=== PATIENT | female | born 1985 | race Two or more races ===

== ENCOUNTER 2024-12-12 09:05 | Emergency (ER) | payer MEDICARE, MEDICAID, SELFPAY ==
[2024-12-12 09:06] VITALS: BMI 47.0
[2024-12-12 09:20] VITALS: BP 112/81; PULSE 92; RESP 18; TEMP 36.9; O2SAT 97
--- NOTE | 2024-12-12 09:24 | XR_ITS ---
Examination: Pelvic ultrasound, transabdominal, complete Technique: Transabdominal ultrasound of the pelvis performed using grayscale imaging Date and time of exam: December 12, 2024 0953 hours INDICATIONS: Post intrauterine device with right pelvic pain today FINDINGS: Uterus 7.0 cm intrauterine device satisfactory position. Posterior uterine body mass 2.9 x 3.0 cm, anterior uterine fundal mass 17 x 14 mm Endometrial stripe 1.0 cm Right ovary 3.0 cm arterial flow, 31 x 30 mm cyst Left ovary 4.6 cm arterial flow 20 x 23 mm cyst IMPRESSION: Intrauterine device satisfactory position Uterine areas of fibroid degeneration Small bilateral ovarian cysts
[2024-12-12 09:55] LABS: Collection Type, Urine Clean Catch
[2024-12-12 10:09] LABS: Bacteria,Urine 1+; Bilirubin,Urine Negative (Negative); Blood,Urine Trace (Negative); Clarity,Urine Turbid (Clear/Hazy); Color,Urine Yellow (Lt Yel-Yel); Culture Indicated,Urine Contaminated; Glucose, Urine Negative (Negative); Ketones,Urine Negative (Negative); Leukocyte Esterase,Urine Positive (Negative); Nitrite,Urine Negative (Negative); PH,Urine 5.5 (5.0-7.0); Protein,Urine Trace (Neg - Trace); RBC,Urine 19 /hpf (0-3); Specific Gravity,Urine 1.025 (1.001-1.035); Squamous Epithelial Cell,Urine 37 /hpf (0-5); Urobilinogen,Urine Negative mg/dL (0.0-1.0); WBC,Urine 248 /hpf (0-5)
[2024-12-12 10:14] LABS: Basophils # (Auto) 0.0 Thou/mm3 (0.0-0.2); Basophils % (Auto) 0 % (0-2.5); Eosinophils # (Auto) 0.1 Thou/mm3 (0.0-0.5); Eosinophils % (Auto) 1 % (0-10); Hematocrit 37.1 % (36.0-46.0); Hemoglobin 11.8 g/dL (12.0-16.0); Immature Granulocytes Auto 0.03 Thou/mm3 (0.00-0.00); Lymphocytes # (Auto) 1.6 Thou/mm3 (1.0-4.8); Lymphocytes % (Auto) 23 % (10-50); Mean Corpuscular HGB Conc 31.8 g/dl (31.0-37.0); Mean Corpuscular Hemoglobin 26.2 pg (25.0-35.0); Mean Corpuscular Volume 82 fL (80-100); Monocytes # (Auto) 0.5 Thou/mm3 (0.0-0.8); Monocytes % (Auto) 8 % (0-12); Neutrophils # (Auto) 4.6 Thou/mm3 (1.8-7.7); Neutrophils % (Auto) 67 % (37-80); Nucleated Red Blood Cell # 0.00 Thou/mm3 (0.00-0.00); Nucleated Red Blood Cell % 0 /100 WBC (0); Platelet Count 328 Thou/mm3 (140-440); RDW Standard Deviation 43.0 fL (36.4-46.3); Red Blood Count 4.51 Miln/mm3 (4.00-5.20); White Blood Count 6.9 Thou/mm3 (3.6-11.0)
[2024-12-12 10:15] LABS: HCG Qualitative,Urine Negative
[2024-12-12 10:16] LABS: Alanine Aminotransferase 15 U/L (10-49); Albumin, Serum 4.3 gm/dL (3.5-5.0); Albumin/Globulin Ratio 1.8 (1.2-2.2); Alkaline Phosphatase 89 U/L (46-116); Anion Gap 9 (7-16); Aspartate Amino Transferase 21 U/L (0-34); BUN/Creatinine Ratio 13 Ratio (12-20); Bilirubin,Total 0.4 mg/dL (0.3-1.2); Blood Urea Nitrogen 10 mg/dL (9-23); Calcium 9.3 mg/dL (8.3-10.6); Calcium (Corrected) 9.3 mg/dL (8.5-10.1); Carbon Dioxide 23.8 mMol/L (20.0-31.0); Chloride 105 mMol/L (98-107); Creatinine (Component) 0.8 mg/dL (0.6-1.3); Estimated Creatinine Clearance 95.5 mL/min (>60); Globulin 2.4 gm/dL (2.3-3.5); Glucose 86 mg/dL (74-106); Osmolality,Calculated 273 (275-295); Potassium 4.0 mMol/L (3.4-5.1); Sodium 138 mMol/L (136-145); Total Protein 6.7 gm/dL (5.7-8.2); eGFR > 60 See Note
[2024-12-12 10:32] LABS: Amphetamine/Methamp Scrn,U Negative (Negative); Barbiturate Screen,Urine Negative (Negative); Benzodiazepines Screen,Urine Negative (Negative); Benzoylecgonine Screen, Ur Negative (Negative); Fentanyl Screen,Urine Negative (Negative); Opiate Screen,Urine Negative (Negative); THC Screen,Urine Negative (Negative)
[2024-12-12] MEDS: cefTRIAXone SOD INJ 1,000 MG VIAL 1000 MG IM (11:04)
[2024-12-12] MEDS: LIDOCAINE HCL 1% 20 ML VIAL 2.1 ML INFL (11:04)
--- NOTE | 2024-12-25 06:48 | EDNOTE_ITS ---
ED Female Urogenital RME/HPI General Chief complaint: Urogenital-Female Stated complaint: MY MARÍA BROKE ; R VAGINAL PAINX1 DAY Time Seen by Provider: 12/12/24 09:17 Arrival date/time: 12/12/24 09:05 39-year-old female with history of schizophrenia and anxiety presents to the Emergency Department today stating that she believes her María stevenson patient believes that she saw string coming out of her vagina patient also reports vaginal pain Limitations: no limitations Related Data Home Medications ?Medication ?Instructions ?Recorded ?Confirmed hydroxyzine pamoate 50 mg capsule 50 mg PO BID PRN Anx iety 07/18/20 07/18/20 (Vistaril) paliperidone palmitate 234 mg/1.5 mg 07/18/20 mL intramuscular syringe (Invega Sustenna) Previous Rx's ?Medication ?Instructions ?Recorded ciprofloxacin HCl 500 mg tablet 500 mg PO BID #14 tabs 11/27/21 (Cipro) Allergies Allergy/AdvReac Type Severity Reaction Status Date / Time acetaminophen (From Tylenol) Allergy Severe Rash Verified 12/12/24 09:11 ibuprofen (From Motrin) Allergy Severe Rash Verified 12/12/24 09:11 Sulfa (Sulfonamide Allergy Severe Hives Verified 12/12/24 09:11 Antibiotics) Review of Systems Review of Systems Systems Reviewed: All systems reviewed, normal except as documented Constitutional Constitutional: Reports system reviewed and no additional complaints, except as documented, Denies fever(s) and Denies headache(s) Eyes Eyes: Reports system reviewed and no additional complaints, except as documented and Denies blurry vision ENT Ears, Nose, Mouth, and Throat: Reports system reviewed and no additional complaints, except as documented, Denies headache(s), Denies nasal congestion and Denies nasal discharge Cardiovascular Cardiovascular: Reports system reviewed and no additional complaints, except as documented, Denies chest pain and Denies dyspnea Respiratory Respiratory: Reports system reviewed and no additional complaints, except as documented, Denies chest congestion, Denies cough and Denies dyspnea Gastrointestinal Gastrointestinal: Reports system reviewed and no additional complaints, except as documented and Denies abdominal pain Integumentary/Breasts Skin/Breast: Reports system reviewed and no additional complaints, except as documented and Denies rash Neurologic Neurologic: Reports system reviewed and no additional complaints, except as documented, Reports as per HPI and Denies headache(s) Psychiatric Psychiatric: Reports system reviewed and no additional complaints, except as documented and Reports other (Anxiety, schizophrenia) Past Medical History Past Medical History NEUROLOGIC: Negative Neurological Disorders CARDIAC: Positive Hypercholesterolemia; Negative Cardiac Disorders or Congestive Heart Failure RESPIRATORY: Negative Chronic Obstructive Pulmonary Disease (COPD) GASTROINTESTINAL: Negative Gastrointestinal Disorders GENITOURINARY: Negative Renal Disease MUSCULOSKELETAL: Negative Musculoskeletal Disorders ENDOCRINE: Negative Endocrine Disorders, Diabetes Mellitus Type 1 or Diabetes Mellitus Type 2 HEMATOLOGIC: Negative Blood Disorders PSYCHO/SOCIAL: Positive Schizophrenia, Bipolar Disorder, Anxiety and Behavior Problems Social History SMOKING STATUS: Never smoker SUBSTANCE USE: does not use ED Exam General Limitations: Present no limitations General appearance: Present alert and in no apparent distress Head Head exam: Present atraumatic Eye Eye exam: Present normal appearance, PERRL and EOMI ENT ENT exam: Present normal exam, normal oropharynx and mucous membranes moist Neck Neck exam: Present normal inspection, full ROM and trachea midline Chest Chest inspection: Present normal inspection and symmetric chest wall rise Respiratory Respiratory exam: Present normal lung sounds bilaterally Cardiovascular Cardiovascular exam: Present regular rate, normal rhythm and normal heart sounds Abdominal Exam Abdominal exam: Present soft and normal bowel sounds Extremities Exam Extremities exam: Present normal inspection and full ROM Back Exam Back exam: Present normal inspection and full ROM Neurological Exam Neurological exam: Present alert, oriented X3 and CN II-XII intact Psychiatric Psychiatric exam: Present normal affect and normal mood Skin Skin exam: Present warm, dry, intact and normal color Course Quality Measures none Orders Category Date Time Status US pelvic complete Stat Exams 12/12/24 09:24 Completed CBC Stat Lab 12/12/24 09:50 Completed Comprehensive Metabolic Panel Stat Lab 12/12/24 09:50 Completed Drug Screen,Urine Stat Lab 12/12/24 09:46 Completed HCG Qualitative,Urine Stat Lab 12/12/24 09:46 Completed Lipase Stat Lab 12/12/24 09:50 Completed UA, C/S IF [Urinalysis, C/S if Indicated] Stat Lab 12/12/24 09:46 Completed Lidocaine 1% 20 ml [Xylocaine 1% 20 ML] Med 12/12/24 10:50 Discontinued 2.1 ml INFL X1 ONE cefTRIAXone [Rocephin] Med 12/12/24 10:50 Discontinued 1,000 mg IM X1 ONE Vital Signs Vital signs: Vital Signs Temperature 98.4 F 12/12/24 09:20 Pulse Rate 92 12/12/24 09:20 Respiratory Rate 18 12/12/24 09:20 Blood Pressure 112/81 12/12/24 09:20 Pulse Oximetry (%) 97 12/12/24 09:20 Oxygen Delivery Method Room Air 12/12/24 09:20 O2 saturation 97% room air within normal limits Urogenital - Female MDM Narrative MDM Narrative:: 39-year-old female with history of schizophrenia and anxiety presents to the Emergency Department today stating that she believes her Mirena broke patient believes that she saw string coming out of her vagina patient also reports vaginal pain On exam patient well-appearing patient does not appear toxic acute distress Ultrasound obtained Mirena is in place Urinalysis obtained consistent with UTI Patient pursue a course of antibiotics Patient struck to follow-up with PCP for further evaluation for worsening symptoms return immediately Patient data External records reviewed:: [facility] previous records Clinical information provided by:: patient Social determinants that could affect healthcare access:: mental health Patient has the following chronic illnesses:: See history How is presenting disease/condition affected by chronic disease/condition?: exacerbated by Evaluation data The following diagnostics were reviewed and interpreted by me:: lab results Lab and/or radiology exams considered but not ordered:: Lab obtained Interpretation Summary: Reviewed by me Medications / Prescriptions Medications or Prescriptions considered but not ordered:: Given Medication administrations:: Medication Administration History Discontinued Medications Ceftriaxone Sodium (Ceftriaxone Sod Inj 1,000 Mg Vial) 1,000 mg IM X1 ONE Stop: 12/12/24 10:51 Last Admin: 12/12/24 11:04 Dose: 1,000 mg Documented By: Lidocaine HCl (Lidocaine Hcl 1% 20 Ml Vial) 2.1 ml INFL X1 ONE Stop: 12/12/24 10:51 Last Admin: 12/12/24 11:04 Dose: 2.1 ml Documented By: Given Consultations Consultation(s) initiated? (list below): No Diagnosis Urogenital Female Differential Diagnosis: urinary tract infection, cystitis and other (IUD displaced) Most likely diagnosis given after review of the tests above:: Reviewed by me Admission Indicated Admission indicated?: not indicated Admission Request Was there a request for admission?: No Disposition Plan Disposition Plan: Discharge Discharge Attestation Discharge Attestation: The patient and all family members were given an opportunity to ask questions and understood the discharge instructions. Discharge instructions specifically effects, indications for sooner follow up or return to the emergency department, and the expected course of current diagnosis. Patient condition: Stable Discharge Plan Plan Patient Disposition: HOME (Self Care) Discharge Disposition comment: Stable Prescriptions/Referrals Prescriptions/Med Rec: No Action hydroxyzine pamoate [Vistaril] 50 mg Capsule 50 mg PO BID PRN (Reason: Anxiety) Invega Sustenna 234 mg/1.5 mL Syringe ciprofloxacin HCl [Cipro] 500 mg tablet 500 mg PO BID Qty: 14 0RF Referrals: Fredy Fitzpatrick MD [Primary Care Provider, Family Practice] - 12/13/24 Problem List Clinical Impression: UTI (urinary tract infection), IUD (intrauterine device) in place Patient/Caregiver Discharge Instructions Education Materials: IUD Additional Instructions: Please follow up with your primary care doctor in the next 24-48hrs for any worsening symptoms return here immediately Print Language: Divehi Stand Alone Forms: Chiara Award Info., Patient Portal Info Letter PA/REGIONAL CLIMATE CHANGE ANALYST Supervising Physician PA/REGIONAL CLIMATE CHANGE ANALYST Supervising Physician: Dr. adams
== END 2024-12-12 11:12 | disposition home or self-care (01) ==
PROVIDERS: Nurse Practitioner Primary Care; Emergency Provider Family Medicine; PCP Family Medicine
DX: N39.0 Urinary tract infection, site not specified (principal); F20.9 Schizophrenia, unspecified; F41.9 Anxiety disorder, unspecified
CPT/HCPCS: 36415; 76856; 80053; 80307; 81001; 81025; 83690; 85025; 96372; 99283; J0696; J3490

== ENCOUNTER 2025-01-06 08:39 | Emergency (ER) | payer MEDICARE, MEDICAID, SELFPAY ==
--- NOTE | 2025-01-06 08:54 | XR_ITS ---
Examination: CT abdomen and pelvis without contrast. Coronal 3-D reconstructions. Sagittal 2-D reconstructions. Date and time of exam:January 06, 2025, 1039 hours INDICATIONS: Right-sided flank pain and dysuria today CTDI: vol (mGy): 11.1 DLP: (mGycm): 652 Technique: Axial images of the abdomen have been obtained, 3 mm slice thickness Intravenous contrast material has not been administered. Low dose protocols were performed. One or more of the following dose reduction techniques were used; automated exposure control, adjustment of the mA and/or KV according to patient size, use of iterative reconstruction technique. Findings: Small pericardial effusion No visualized liver or splenic lesion Absent gallbladder No extra hepatic biliary tract dilatation No pancreatic or adrenal mass. No renal or ureteral calculi, no hydronephrosis Aorta normal size No bowel obstruction Normal appendix No diverticulitis Focal area of fat inflammation in the pelvis on the right side, axial image 145, measuring 15 mm Intrauterine device satisfactory position Minimal thickening of urinary bladder wall Moderate osteopenia IMPRESSION: No renal or ureteral calculi, no hydronephrosis Normal appendix Focal epiploic appendagitis right pelvis Mild cystitis pattern
[2025-01-06 08:55] VITALS: BP 115/76; PULSE 88; RESP 18; TEMP 37.2; O2SAT 99; BMI 43.9
--- NOTE | 2025-01-06 08:56 | PD.EDRME ---
Rapid Medical Screening Exam RME Arrival date/time: 01/06/25 08:39 39-year-old female with a history of schizophrenia and bipolar disorder presents to the emergency room with a chief complaint of right sided flank pain and dysuria. Patient states she was diagnosed with a UTI and prescribed oral antibiotics a week ago. I have greeted and performed a focused initial assessment of this patient. A comprehensive ED assessment and evaluation of the patient, analysis of all test results, and completion of the medical decision making process will be conducted by additional ED providers. Chief Complaint: General Adult/Misc Complain Time Seen by Provider: 01/06/25 08:41 Vital signs reviewed by provider: Yes
[2025-01-06 09:36] LABS: Basophils # (Auto) 0.0 Thou/mm3 (0.0-0.2); Basophils % (Auto) 0 % (0-2.5); Eosinophils # (Auto) 0.1 Thou/mm3 (0.0-0.5); Eosinophils % (Auto) 2 % (0-10); Hematocrit 38.6 % (36.0-46.0); Hemoglobin 12.3 g/dL (12.0-16.0); Immature Granulocytes Auto 0.00 Thou/mm3 (0.00-0.00); Lymphocytes # (Auto) 1.7 Thou/mm3 (1.0-4.8); Lymphocytes % (Auto) 33 % (10-50); Mean Corpuscular HGB Conc 31.9 g/dl (31.0-37.0); Mean Corpuscular Hemoglobin 26.2 pg (25.0-35.0); Mean Corpuscular Volume 82 fL (80-100); Monocytes # (Auto) 0.3 Thou/mm3 (0.0-0.8); Monocytes % (Auto) 7 % (0-12); Neutrophils # (Auto) 2.9 Thou/mm3 (1.8-7.7); Neutrophils % (Auto) 58 % (37-80); Nucleated Red Blood Cell # 0.00 Thou/mm3 (0.00-0.00); Nucleated Red Blood Cell % 0 /100 WBC (0); Platelet Count 338 Thou/mm3 (140-440); RDW Standard Deviation 44.0 fL (36.4-46.3); Red Blood Count 4.69 Miln/mm3 (4.00-5.20); White Blood Count 5.0 Thou/mm3 (3.6-11.0)
[2025-01-06 09:36] LABS: Collection Type, Urine Clean Catch
[2025-01-06 09:42] LABS: HCG Qualitative,Urine Negative
[2025-01-06 09:44] LABS: Bilirubin,Urine Negative (Negative); Blood,Urine 3+ (Negative); Clarity,Urine Turbid (Clear/Hazy); Color,Urine Yellow (Lt Yel-Yel); Glucose, Urine Negative (Negative); Ketones,Urine Trace (Negative); Leukocyte Esterase,Urine Positive (Negative); Nitrite,Urine Negative (Negative); PH,Urine 6.0 (5.0-7.0); Protein,Urine Trace (Neg - Trace); RBC,Urine 6 /hpf (0-3); Specific Gravity,Urine 1.028 (1.001-1.035); Squamous Epithelial Cell,Urine 21 /hpf (0-5); Urobilinogen,Urine Negative mg/dL (0.0-1.0); WBC,Urine 50 /hpf (0-5)
[2025-01-06 09:56] LABS: Alanine Aminotransferase 33 U/L (10-49); Albumin, Serum 4.4 gm/dL (3.5-5.0); Albumin/Globulin Ratio 1.6 (1.2-2.2); Alkaline Phosphatase 83 U/L (46-116); Anion Gap 10 (7-16); Aspartate Amino Transferase 50 U/L (0-34); BUN/Creatinine Ratio 11 Ratio (12-20); Bilirubin,Total 0.5 mg/dL (0.3-1.2); Blood Urea Nitrogen 9 mg/dL (9-23); Calcium 9.1 mg/dL (8.3-10.6); Calcium (Corrected) 9.1 mg/dL (8.5-10.1); Carbon Dioxide 25.4 mMol/L (20.0-31.0); Chloride 108 mMol/L (98-107); Creatinine (Component) 0.8 mg/dL (0.6-1.3); Estimated Creatinine Clearance 91.5 mL/min (>60); Globulin 2.7 gm/dL (2.3-3.5); Glucose 94 mg/dL (74-106); Lipase 30 U/L (12-53); Osmolality,Calculated 283 (275-295); Potassium 3.7 mMol/L (3.4-5.1); Sodium 143 mMol/L (136-145); Total Protein 7.1 gm/dL (5.7-8.2); eGFR > 60 See Note
--- NOTE | 2025-01-06 11:50 | EDNOTE_ITS ---
<Statement entered by Anh Ge MD - 01/07/25 16:04> As co-signing physician, I was present and available for consult prn. I concur with the plan and care as documented by the midlevel provider. ED General RME/HPI General Chief complaint: General Adult/Misc Complain Stated complaint: WANTS TO KNOW IF UTI HAS SPREAD TO KIDNEYS Time Seen by Provider: 01/06/25 08:41 Arrival date/time: 01/06/25 08:39 CC: Right sided abdominal pain HPI unknown how long it has been going on for the patient is a very poor historian. Patient states she has been on antibiotics for UTI, the patient states but she has not taken them completely she stopped because of side effects . The patient is easily distracted poor historian, and notes she has an allergies to ibuprofen sulfa. RME / HPI RME / HPI narrative: 01/06/25 08:39 39-year-old female with a history of schizophrenia and bipolar disorder presents to the emergency room with a chief complaint of right sided flank pain and dysuria. Patient states she was diagnosed with a UTI and prescribed oral antibiotics a week ago. I have greeted and performed a focused initial assessment of this patient. A comprehensive ED assessment and evaluation of the patient, analysis of all test results, and completion of the medical decision making process will be conducted by additional ED providers. Related Data Home Medications ?Medication ?Instructions ?Recorded ?Confirmed hydroxyzine pamoate 50 mg capsule 50 mg PO BID PRN Anx iety 07/18/20 07/18/20 (Vistaril) paliperidone palmitate 234 mg/1.5 mg 07/18/20 mL intramuscular syringe (Invega Sustenna) Previous Rx's ?Medication ?Instructions ?Recorded ciprofloxacin HCl 500 mg tablet 500 mg PO BID #14 tabs 11/27/21 (Cipro) ibuprofen 600 mg tablet 600 mg PO QAM #14 tabs 01/06 nitrofurantoin 100 mg PO Q12H 5 days #10 ca ps 01/06/25 monohydrate/macrocrystals 100 mg capsule (Macrobid) Allergies Allergy/AdvReac Type Severity Reaction Status Date / Time acetaminophen (From Tylenol) Allergy Severe Rash Verified 01/06/25 08:42 ibuprofen (From Motrin) Allergy Severe Rash Verified 01/06/25 08:42 Sulfa (Sulfonamide Allergy Severe Hives Verified 01/06/25 08:42 Antibiotics) Review of Systems Review of Systems Narrative Review of Systems: GEN: No fever, no chills, no weight loss EYES: No discharge, no visual changes, no pain HEENT: No ear pain, no congestion, no sore throat PULM: No shortness of breath, no cough, no congestion CV: No chest pain, no dyspnea on exertion, no palpitations GI: No nausea, no vomiting, no diarrhea, no pain, no constipation : No frequency, no urgency, no dysuria MUSC/SKEL: No joint pain, no back pain SKIN: No rash PSYCH: No hallucinations, no depression HEME/LYMPH: No easy bleeding or bruising tendencies NEURO: No weakness, no headache Past Medical History Past Medical History NEUROLOGIC: Negative Neurological Disorders CARDIAC: Positive Hypercholesterolemia; Negative Cardiac Disorders or Congestive Heart Failure RESPIRATORY: Negative Chronic Obstructive Pulmonary Disease (COPD) GASTROINTESTINAL: Negative Gastrointestinal Disorders GENITOURINARY: Negative Renal Disease MUSCULOSKELETAL: Negative Musculoskeletal Disorders ENDOCRINE: Negative Endocrine Disorders, Diabetes Mellitus Type 1 or Diabetes Mellitus Type 2 HEMATOLOGIC: Negative Blood Disorders PSYCHO/SOCIAL: Positive Schizophrenia, Bipolar Disorder, Anxiety and Behavior Problems Social History SMOKING STATUS: Never smoker SUBSTANCE USE: does not use ED Exam Narrative Physical exam: [General: Morbid obese not in anyacute distress Head normocephalic HEENT: Within acceptable limits Neck is supple nontender Chest equal chest rise nontender to palpation Respiratory: Clear to auscultation no wheezes crackles or rubs CV: Rate rhythm is regular no murmurs rubs or clicks Abdomen is grossly distended secondary to body habitus soft nontender no masses positive bowel sounds all 4 quadrants Back: No CVA tenderness no spinous process tenderness from cervical spine thoracic and lumbar spine Skin: Intact no petechiae rash induration ulceration or crepitus Extremities: Moving all extremity against resistance cap refill less than 2 seconds neurosensory intact Neuro: Awake alert oriented x3 Glascow coma 15 no focal deficits] Course Course Course Narrative: Review the medical record show the patient's ibuprofen causes a rash however the patient denies that this happens on a regular basis. Patient feels that she had side effects to ciprofloxacin and is refusing that as an antibiotic at this time we will prescribe her Macrobid however I feel it was a contaminated urine specimen. Quality Measures none Orders Category Date Time Status CT abdomen pelvis wo con Stat Exams 10/06/25 08:54 Completed CBC Stat Lab 01/06/25 09:22 Completed CMP [Comprehensive Metabolic Panel] Stat Lab 01/06/25 09:22 Completed HCG Qualitative,Urine Stat Lab 01/06/25 09:15 Completed Lipase Stat Lab 01/06/25 09:22 Completed UA [Urinalysis] Stat Lab 01/06/25 09:15 Completed Urine Culture Stat Lab 01/06/25 09:15 Received Vital Signs Vital signs: Vital Signs Temperature 99 F 01/06/25 08:55 Pulse Rate 88 01/06/25 08:55 Respiratory Rate 18 01/06/25 08:55 Blood Pressure 115/76 01/06/25 08:55 Pulse Oximetry (%) 99 01/06/25 08:55 Oxygen Delivery Method Room Air 01/06/25 08:55 Discharge Plan Plan Patient Disposition: HOME (Self Care) Patient condition on transfer: Stable Prescriptions/Referrals Prescriptions/Med Rec: New nitrofurantoin monohyd/m-cryst [Macrobid] 100 mg capsule 100 mg PO Q12H 5 Days Qty: 10 0RF Rx Instructions: must administer with a meal/food ibuprofen 600 mg tablet 600 mg PO QAM Qty: 14 0RF No Action hydroxyzine pamoate [Vistaril] 50 mg Capsule 50 mg PO BID PRN (Reason: Anxiety) Invega Sustenna 234 mg/1.5 mL Syringe ciprofloxacin HCl [Cipro] 500 mg tablet 500 mg PO BID Qty: 14 0RF Referrals: Fredy Fitzpatrick MD [Primary Care Provider, Family Practice] - In 1 week Problem List Clinical Impression: Epiploic appendagitis Patient/Caregiver Discharge Instructions Other Activity Instructions:: Take the medications as prescribed. Follow-up with your primary care doctor Education Materials: Anatomy of the Digestive System Print Language: [place] Stand Alone Forms: Chiara Award Info., Patient Portal Info Letter, Work/School Release PA/FLIGHT CONTROL MANAGER Supervising Physician PA/FLIGHT CONTROL MANAGER Supervising Physician: Bert Cardenas ENP [facility] Clinical Information Provided by: patient Medical Records reviewed [facility] Meds/Rx considered, not ordered None Labs/Rad/Tests considered, not ordered None Chronic Illness/Social Conditions Explain: Schizophrenia EKG EKG not done Labs Labs: interpreted by co Lab(s) Interpretation(s): CBC shows no acute leukocytosis anemia thrombocytopenia CMP shows no significant electrolyte imbalances renal impairment transaminitis or T. bili elevation Urine shows 3+ blood 6 RBCs WBCs at 50 squamous of 21 no bacteria is negative.
== END 2025-01-06 12:14 | disposition home or self-care (01) ==
PROVIDERS: Nurse Practitioner Family; Emergency Provider Emergency Medicine; PCP Family Medicine
DX: K63.89 Other specified diseases of intestine (principal)
CPT/HCPCS: 36415; 74176; 80053; 81001; 81025; 83690; 85025; 87086; 99283

== ENCOUNTER 2025-01-10 03:27 | Emergency (ER) | payer MEDICARE, MEDICAID, SELFPAY ==
[2025-01-10 03:29] VITALS: BMI 62.7
--- NOTE | 2025-01-10 03:30 | EKG_ITS ---
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
[2025-01-10 03:33] VITALS: BP 137/81; PULSE 83; RESP 19; TEMP 36.5; O2SAT 99
--- NOTE | 2025-01-10 03:51 | XR_ITS ---
EXAMINATION: PA chest single view TECHNIQUE: Upright PA chest single view Date and time: January 10, 2025, 0433 hours, comparison February 11, 2020 INDICATIONS: Chest pain shortness of breath beginning 3 hours ago FINDINGS: Normal heart size. Lungs are clear. The osseous structures are intact IMPRESSION: No active disease
[2025-01-10 04:07] LABS: Collection Type, Urine Clean Catch
[2025-01-10 04:09] LABS: HCG Qualitative,Urine Negative
[2025-01-10 04:11] LABS: Bilirubin,Urine Negative (Negative); Blood,Urine Negative (Negative); Clarity,Urine Clear (Clear/Hazy); Color,Urine Lt-Yellow (Lt Yel-Yel); Culture Indicated,Urine Yes; Glucose, Urine Negative (Negative); Ketones,Urine Negative (Negative); Leukocyte Esterase,Urine Positive (Negative); Nitrite,Urine Negative (Negative); PH,Urine 6.0 (5.0-7.0); Protein,Urine Negative (Neg - Trace); RBC,Urine 2 /hpf (0-3); Specific Gravity,Urine 1.010 (1.001-1.035); Squamous Epithelial Cell,Urine 4 /hpf (0-5); Urobilinogen,Urine Negative mg/dL (0.0-1.0); WBC,Urine 21 /hpf (0-5)
--- NOTE | 2025-01-10 05:13 | PD.EDRME ---
Rapid Medical Screening Exam RME Arrival date/time: 01/10/25 03:27 39F with history of psych presents to ED with several hours of CP and SOB. Patient declines anxiety meds and would prefer a work-up. Chief Complaint: Anxiety Time Seen by Provider: 01/10/25 03:46 Vital signs: Vital Signs Temperature 97.7 F 01/10/25 03:33 Pulse Rate 83 01/10/25 03:33 Respiratory Rate 19 01/10/25 03:33 Blood Pressure 137/81 H 01/10/25 03:33 Pulse Oximetry (%) 99 01/10/25 03:33 Oxygen Delivery Method Room Air 01/10/25 03:33
[2025-01-10 05:52] LABS: Basophils # (Auto) 0.0 Thou/mm3 (0.0-0.2); Basophils % (Auto) 0 % (0-2.5); Eosinophils # (Auto) 0.1 Thou/mm3 (0.0-0.5); Eosinophils % (Auto) 2 % (0-10); Hematocrit 37.5 % (36.0-46.0); Hemoglobin 12.3 g/dL (12.0-16.0); Immature Granulocytes Auto 0.01 Thou/mm3 (0.00-0.00); Lymphocytes # (Auto) 1.4 Thou/mm3 (1.0-4.8); Lymphocytes % (Auto) 26 % (10-50); Mean Corpuscular HGB Conc 32.8 g/dl (31.0-37.0); Mean Corpuscular Hemoglobin 26.8 pg (25.0-35.0); Mean Corpuscular Volume 82 fL (80-100); Monocytes # (Auto) 0.4 Thou/mm3 (0.0-0.8); Monocytes % (Auto) 7 % (0-12); Neutrophils # (Auto) 3.4 Thou/mm3 (1.8-7.7); Neutrophils % (Auto) 65 % (37-80); Nucleated Red Blood Cell # 0.00 Thou/mm3 (0.00-0.00); Nucleated Red Blood Cell % 0 /100 WBC (0); Platelet Count 343 Thou/mm3 (140-440); RDW Standard Deviation 42.2 fL (36.4-46.3); Red Blood Count 4.59 Miln/mm3 (4.00-5.20); White Blood Count 5.2 Thou/mm3 (3.6-11.0)
[2025-01-10 06:14] LABS: D-Dimer 267 ng/mL (<600)
[2025-01-10 06:28] LABS: Alanine Aminotransferase 22 U/L (10-49); Albumin, Serum 4.5 gm/dL (3.5-5.0); Albumin/Globulin Ratio 1.4 (1.2-2.2); Alkaline Phosphatase 80 U/L (46-116); Anion Gap 9 (7-16); Aspartate Amino Transferase < 10 U/L (0-34); BUN/Creatinine Ratio 13 Ratio (12-20); Bilirubin,Total 0.7 mg/dL (0.3-1.2); Blood Urea Nitrogen 10 mg/dL (9-23); Calcium 9.3 mg/dL (8.3-10.6); Calcium (Corrected) 9.3 mg/dL (8.5-10.1); Carbon Dioxide 24.3 mMol/L (20.0-31.0); Chloride 107 mMol/L (98-107); Creatinine (Component) 0.8 mg/dL (0.6-1.3); Estimated Creatinine Clearance 108.1 mL/min (>60); Globulin 3.2 gm/dL (2.3-3.5); Glucose 90 mg/dL (74-106); Osmolality,Calculated 278 (275-295); Potassium 3.6 mMol/L (3.4-5.1); Sodium 140 mMol/L (136-145); Total Protein 7.7 gm/dL (5.7-8.2); Troponin I < 0.002 ng/mL (0.0-0.045); eGFR > 60 See Note
[2025-01-10 07:01] VITALS: BP 139/84; PULSE 68; RESP 17; TEMP 37.1; O2SAT 97
--- NOTE | 2025-01-10 07:01 | PD.EDWEAK ---
ED Weakness RME/HPI General Chief complaint: Anxiety Stated complaint: CHEST PAIN/ SOB Time Seen by Provider: 01/10/25 03:46 Source: patient Arrival date/time: 01/10/25 03:27 39-year-old female with history of bipolar disorder presents to the emergency room with a chief complaint of chest pain, shortness of breath, generalized weakness x 3 days Mode of arrival: ambulatory Limitations: no limitations RME / HPI RME / HPI Narrative: 01/10/25 03:27 39F with history of psych presents to ED with several hours of CP and SOB. Patient declines anxiety meds and would prefer a work-up. Related Data Home Medications ?Medication ?Instructions ?Recorded ?Confirmed hydroxyzine pamoate 50 mg capsule 50 mg PO BID PRN Anxiety 07/18/20 07/18/20 (Vistaril) paliperidone palmitate 234 mg/1.5 mg 07/18/20 mL intramuscular syringe (Invega Sustenna) Previous Rx's ?Medication ?Instructions ?Recorded ciprofloxacin HCl 500 mg tablet 500 mg PO BID #14 tabs 11/27/21 (Cipro) ibuprofen 600 mg tablet 600 mg PO QAM #14 tabs 01/06/25 nitrofurantoin 100 mg PO Q12H 5 days #10 caps 01/06/25 monohydrate/macrocrystals 100 mg capsule (Macrobid) Allergies Allergy/AdvReac Type Severity Reaction Status Date / Time acetaminophen (From Tylenol) Allergy Severe Rash Verified 01/06/25 08:42 ibuprofen (From Motrin) Allergy Severe Rash Verified 01/06/25 08:42 Sulfa (Sulfonamide Allergy Severe Hives Verified 01/06/25 08:42 Antibiotics) ciprofloxacin Allergy Verified 01/06/25 12:12 Review of Systems Review of Systems Systems Reviewed: All systems reviewed, normal except as documented Constitutional Constitutional: Reports system reviewed and no additional complaints, except as documented, Denies fatigue, Denies fever(s), Denies headache(s) and Denies weakness Eyes Eyes: Reports system reviewed and no additional complaints, except as documented, Denies blurry vision and Denies change in vision ENT Ears, Nose, Mouth, and Throat: Reports system reviewed and no additional complaints, except as documented, Denies otalgia, Denies headache(s), Denies nasal congestion, Denies throat swelling and Denies vertigo Cardiovascular Cardiovascular: Reports system reviewed and no additional complaints, except as documented, Reports chest pain, Reports dyspnea and Denies dyspnea on exertion Respiratory Respiratory: Reports system reviewed and no additional complaints, except as documented, Denies chest congestion, Denies cough, Reports dyspnea, Denies dyspnea on exertion and Denies wheezing Gastrointestinal Gastrointestinal: Reports system reviewed and no additional complaints, except as documented, Denies abdominal pain, Denies cramping, Denies nausea and Denies vomiting Genitourinary Genitourinary: Reports system reviewed and no additional complaints, except as documented Musculoskeletal Musculoskeletal: Reports system reviewed and no additional complaints, except as documented and Denies back pain Integumentary/Breasts Skin/Breast: Reports system reviewed and no additional complaints, except as documented and Denies wounds Neurologic Neurologic: Reports system reviewed and no additional complaints, except as documented, Denies confusion, Denies headache(s), Denies lack of coordination, Denies vertigo and Denies weakness Psychiatric Psychiatric: Reports system reviewed and no additional complaints, except as documented, Denies anxiety, Denies confusion, Denies depression, Denies paranoia, Denies suicidal ideation and Denies tactile hallucinations Endocrine Endocrine: Reports system reviewed and no additional complaints, except as documented and Denies fatigue Hematologic/Lymphatic Hematologic/Lymphatic: Reports system reviewed and no additional complaints, except as documented and Denies lymphadenopathy Allergic/Immunologic Allergic/Immunologic: Reports system reviewed and no additional complaints, except as documented, Denies throat swelling, Denies urticaria and Denies wheezing ED Exam General Limitations: Present no limitations General appearance: Present alert and in no apparent distress Head Head exam: Present atraumatic Eye Eye exam: Present normal appearance, PERRL and EOMI ENT ENT exam: Present normal exam, normal oropharynx and mucous membranes moist Neck Neck exam: Present normal inspection, full ROM and trachea midline Chest Chest inspection: Present normal inspection and symmetric chest wall rise Respiratory Respiratory exam: Present normal lung sounds bilaterally; Absent respiratory distress, wheezes, stridor, accessory muscle use or prolonged expiratory phase Cardiovascular Cardiovascular exam: Present regular rate, normal rhythm, normal heart sounds, +S1 and +S2; Absent tachycardia Abdominal Exam Abdominal exam: Present soft and normal bowel sounds; Absent tenderness Extremities Exam Extremities exam: Present normal inspection and full ROM Back Exam Back exam: Present normal inspection and full ROM Neurological Exam Neurological exam: Present alert, oriented X3 and CN II-XII intact Psychiatric Psychiatric exam: Present normal affect and normal mood Skin Skin exam: Present warm, dry, intact and normal color Course Quality Measures none Orders Category Date Time Status EKG (ED ONLY) *Do not use* NOW Care 01/10/25 03:30 Completed EKG (ED Only) Stat Exams 01/10/25 03:30 Draft XR chest 1V portable Stat Exams 01/10/25 04:41 Taken CBC Stat Lab 01/10/25 05:30 Completed CMP [Comprehensive Metabolic Panel] Stat Lab 01/10/25 05:30 Completed D-Dimer Stat Lab 01/10/25 05:30 Completed HCG Qualitative,Urine Stat Lab 01/10/25 03:57 Completed Troponin I Stat Lab 01/10/25 05:30 Completed Urinalysis, C/S if Indicated Stat Lab 01/10/25 03:57 Completed Urine Culture Stat Lab 01/10/25 03:57 Received Vital Signs Vital signs: Vital Signs Temperature 97.7 F 01/10/25 03:33 Pulse Rate 83 01/10/25 03:33 Respiratory Rate 19 01/10/25 03:33 Blood Pressure 137/81 H 01/10/25 03:33 Pulse Oximetry (%) 99 01/10/25 03:33 Oxygen Delivery Method Room Air 01/10/25 03:33 Weakness MDM Narrative MDM Narrative:: 39-year-old female with history of bipolar disorder presents to the emergency room with a chief complaint of chest pain, shortness of breath, generalized weakness x 3 days Patient is hemodynamically stable and in no apparent distress Physical examination shows clear bilateral lung sounds there is no wheezing or any abnormal breath sounds. The patient has a strong and regular rhythm S1 and S2 noted During my reevaluation the patient states she feels a little bit better. CBC CMP are within normal limits. There is no anemia there is no dehydration and there is no hypoglycemia. The patient is currently taking Macrobid for UTI. EKG shows normal sinus rhythm at [address] deviation. Troponin negative. Patient was discharged and educated to follow-up with primary care provider in the next 24 to 48 hours and return to the emergency room for any evidence of worsening signs or symptoms Patient data External records reviewed:: [facility] previous records Clinical information provided by:: patient Social determinants that could affect healthcare access:: none Patient has the following chronic illnesses:: No chronic illness How is presenting disease/condition affected by chronic disease/condition?: no chronic disease Evaluation data The following diagnostics were reviewed and interpreted by me:: lab results and radiology exam(s) Lab and/or radiology exams considered but not ordered:: Labs and radiology exams considered and ordered Interpretation Summary: N/A Medications / Prescriptions Medications or Prescriptions considered but not ordered:: No medication given Medication administrations:: No medication given Consultations Consultation(s) initiated? (list below): No Diagnosis Weakness Differential Diagnosis: acute myocardial infarction, anemia, hypoglycemia, hypothyroidism, dehydration and other (Weakness) Most likely diagnosis given after review of the tests above:: Weakness Admission Indicated Admission indicated?: not indicated Admission Request Was there a request for admission?: No Disposition Plan Disposition Plan: Discharge Discharge Attestation Discharge Attestation: The patient and all family members were given an opportunity to ask questions and understood the discharge instructions. Discharge instructions specifically effects, indications for sooner follow up or return to the emergency department, and the expected course of current diagnosis. Patient condition: Stable Discharge Plan Plan Patient Disposition: HOME (Self Care) Discharge Disposition comment: Stable Prescriptions/Referrals Prescriptions/Med Rec: No Action hydroxyzine pamoate [Vistaril] 50 mg Capsule 50 mg PO BID PRN (Reason: Anxiety) Invega Sustenna 234 mg/1.5 mL Syringe ciprofloxacin HCl [Cipro] 500 mg tablet 500 mg PO BID Qty: 14 0RF nitrofurantoin monohyd/m-cryst [Macrobid] 100 mg capsule 100 mg PO Q12H 5 Days Qty: 10 0RF Rx Instructions: must administer with a meal/food ibuprofen 600 mg tablet 600 mg PO QAM Qty: 14 0RF Referrals: Fredy Fitzpatrick MD [Primary Care Provider, Family Practice] - In 1 week Problem List Clinical Impression: Weakness Patient/Caregiver Discharge Instructions Education Materials: ED Weakness (Uncertain Cause) Additional Instructions: Please follow-up with your primary care provider in the next 24 to 48 hours Your cardiac examination was within normal limits. For any evidence of worsening signs or symptoms return to emergency room immediately Print Language: Albanian Stand Alone Forms: Chiara Award Info., Patient Portal Info Letter PA/CAGE MAKER Supervising Physician PA/CAGE MAKER Supervising Physician: Dr. Villafuerte
[2025-01-10 07:26] VITALS: BP 139/84; PULSE 68; RESP 17; TEMP 37.1; O2SAT 97
== END 2025-01-10 07:26 | disposition home or self-care (01) ==
PROVIDERS: Physician Assistant; Emergency Provider Emergency Medicine; PCP Family Medicine
DX: R53.1 Weakness (principal); F31.9 Bipolar disorder, unspecified; F41.9 Anxiety disorder, unspecified
CPT/HCPCS: 36415; 71045; 80053; 81001; 81025; 84484; 85025; 85379; 87086; 93005; 99283

== ENCOUNTER 2025-01-13 18:29 | Emergency (ER) | payer MEDICARE, MEDICAID, SELFPAY ==
[2025-01-13 18:31] VITALS: BMI 41.8
[2025-01-13 19:15] VITALS: BP 153/93; PULSE 92; RESP 18; TEMP 36.7; O2SAT 98
--- NOTE | 2025-01-13 20:06 | EKG_ITS ---
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
--- NOTE | 2025-01-13 20:08 | XR_ITS ---
EXAMINATION: PA chest single view TECHNIQUE: Upright PA chest single view Date and time: January 13, 2025, 6 hours INDICATIONS: Shortness of breath nausea chest pain beginning 2 days ago FINDINGS: Normal heart size The lungs are clear. The osseous ruptures are intact IMPRESSION: No active disease
[2025-01-13 20:37] LABS: Base Excess, Venous -1 (-3-3); Basophils # (Auto) 0.0 Thou/mm3 (0.0-0.2); Basophils % (Auto) 0 % (0-2.5); Eosinophils # (Auto) 0.1 Thou/mm3 (0.0-0.5); Eosinophils % (Auto) 1 % (0-10); Hematocrit 35.9 % (36.0-46.0); Hemoglobin 11.9 g/dL (12.0-16.0); Immature Granulocytes Auto 0.01 Thou/mm3 (0.00-0.00); Lymphocytes # (Auto) 1.7 Thou/mm3 (1.0-4.8); Lymphocytes % (Auto) 26 % (10-50); Mean Corpuscular HGB Conc 33.1 g/dl (31.0-37.0); Mean Corpuscular Hemoglobin 26.7 pg (25.0-35.0); Mean Corpuscular Volume 81 fL (80-100); Monocytes # (Auto) 0.5 Thou/mm3 (0.0-0.8); Monocytes % (Auto) 8 % (0-12); Neutrophils # (Auto) 4.1 Thou/mm3 (1.8-7.7); Neutrophils % (Auto) 64 % (37-80); Nucleated Red Blood Cell # 0.00 Thou/mm3 (0.00-0.00); Nucleated Red Blood Cell % 0 /100 WBC (0); O2 Saturation, Venous 68 % (96-97); PCO2, Venous 37 mmHg (36-56); PO2, Venous 35 mmHg (15-58); Platelet Count 336 Thou/mm3 (140-440); RDW Standard Deviation 43.1 fL (36.4-46.3); Red Blood Count 4.46 Miln/mm3 (4.00-5.20); White Blood Count 6.4 Thou/mm3 (3.6-11.0); pH, Venous 7.41 (7.33-7.66)
--- NOTE | 2025-01-13 20:40 | PD.EDRME ---
Rapid Medical Screening Exam RME Arrival date/time: 01/13/25 18:29 Chief Complaint: General Adult/Misc Complain Time Seen by Provider: 01/13/25 18:38 Vital signs: Vital Signs Temperature 98.1 F 01/13/25 19:15 Pulse Rate 92 01/13/25 19:15 Respiratory Rate 18 01/13/25 19:15 Blood Pressure 153/93 H 01/13/25 19:15 Pulse Oximetry (%) 98 01/13/25 19:15 Oxygen Delivery Method Room Air 01/13/25 19:15 Vital signs reviewed by provider: Yes RME Narrative: Patient was drinking alcohol with a friend yesterday however she thinks it might be a different substance, she drank a bottle of it, as today she has nausea vomiting and shortness of breath. She is requesting poisoning testing here in the ER. I briefly performed a screening evaluation to initiate work-up and expedite care. Complete history, physical exam, and plan of care is deferred to the provider in the main ED.
[2025-01-13 20:53] LABS: Amphetamine/Methamp Scrn,U Negative (Negative); Barbiturate Screen,Urine Negative (Negative); Benzodiazepines Screen,Urine Negative (Negative); Benzoylecgonine Screen, Ur Negative (Negative); Fentanyl Screen,Urine Negative (Negative); Opiate Screen,Urine Negative (Negative); THC Screen,Urine Negative (Negative)
[2025-01-13 21:18] LABS: Acetaminophen < 2.0 mcg/mL (10.0-20.0); Alanine Aminotransferase 19 U/L (10-49); Albumin, Serum 4.5 gm/dL (3.5-5.0); Albumin/Globulin Ratio 1.6 (1.2-2.2); Alcohol, Blood Medical < 3.0 mg/dL (0-10.0); Alkaline Phosphatase 77 U/L (46-116); Anion Gap 10 (7-16); Aspartate Amino Transferase 23 U/L (0-34); BUN/Creatinine Ratio 11 Ratio (12-20); Bilirubin,Total 0.4 mg/dL (0.3-1.2); Blood Urea Nitrogen 10 mg/dL (9-23); Calcium 9.3 mg/dL (8.3-10.6); Calcium (Corrected) 9.3 mg/dL (8.5-10.1); Carbon Dioxide 22.8 mMol/L (20.0-31.0); Chloride 104 mMol/L (98-107); Creatine Kinase 130 U/L (34-171); Creatinine (Component) 0.9 mg/dL (0.6-1.3); Estimated Creatinine Clearance 79.0 mL/min (>60); Globulin 2.9 gm/dL (2.3-3.5); Glucose 108 mg/dL (74-106); Osmolality,Calculated 273 (275-295); Potassium 3.6 mMol/L (3.4-5.1); Sodium 137 mMol/L (136-145); Total Protein 7.4 gm/dL (5.7-8.2); eGFR > 60 See Note
--- NOTE | 2025-01-13 21:35 | PD.EDPSYCH ---
ED Psych RME/HPI General Chief Complaint: General Adult/Misc Complain Stated Complaint: THINKS DRANK CONTAMINTAED ETOH FEW DAYS AGO Time Seen by Provider: 01/13/25 18:38 Arrival date/time: 01/13/25 18:29 RME / HPI RME / HPI Narrative: Patient was drinking alcohol with a friend yesterday however she thinks it might be a different substance, she drank a bottle of it, as today she has nausea vomiting and shortness of breath. She is requesting poisoning testing here in the ER. I briefly performed a screening evaluation to initiate work-up and expedite care. Complete history, physical exam, and plan of care is deferred to the provider in the main ED. DR. 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 Patient has since developed mild epigastric discomfort, nausea, and mild SOB. Amount of alcohol consumed is unclear. PMH: Schizoaffective disorder, GERD PSH: Non-contributory Allergies: Acetaminophen, Ciprofloxacin, Ibuprofen, Sulfa Social: Occasional alcohol consumption and denies drug abuse Related Data Home Medications ?Medication ?Instructions ?Recorded ?Confirmed hydroxyzine pamoate 50 mg capsule 50 mg PO BID PRN Anxiety 07/18/20 07/18/20 (Vistaril) paliperidone palmitate 234 mg/1.5 mg 07/18/20 mL intramuscular syringe (Invega Sustenna) Previous Rx's ?Medication ?Instructions ?Recorded ciprofloxacin HCl 500 mg tablet 500 mg PO BID #14 tabs 11/27/21 (Cipro) ibuprofen 600 mg tablet 600 mg PO QAM #14 tabs 01/06/25 cephalexin 500 mg capsule 500 mg PO Q8H 5 days #15 caps 01/13/25 Allergies Allergy/AdvReac Type Severity Reaction Status Date / Time acetaminophen (From Tylenol) Allergy Severe Rash Verified 01/13/25 18:36 ciprofloxacin Allergy Severe Hives Verified 01/13/25 18:36 ibuprofen (From Motrin) Allergy Severe Rash Verified 01/13/25 18:36 Sulfa (Sulfonamide Allergy Severe Hives Verified 01/13/25 18:36 Antibiotics) Review of Systems Review of Systems Systems Reviewed: All systems reviewed, normal except as documented Past Medical History Past Medical History CARDIAC: Positive Hypercholesterolemia PSYCHO/SOCIAL: Positive Schizophrenia, Bipolar Disorder and Anxiety ED Exam Narrative Physical exam: GEN. APPEARANCE: The patient is alert awake oriented X-3, Slightly flat affect and mildly paranoid. Lying down comfortably, does not look ill/toxic. Patient has good eye contact. Patient is cooperative. VITALS: All vitals were reviewed and the pulse ox is 98%, which is normal according to my interpretation HEENT: Normocephalic, atraumatic and nontender. Pupils are equal and reactive. Oral mucosa is moist. NECK: Supple, nontender, no meningismus, no JVD. There is no thyromegaly and no lymphadenopathy. CHEST: Nontender on palpation no deformity and no crepitus. CARDIOVASCULAR: Heart regular rhythm, no murmur or gallop rub or extra beats. LUNGS: Clear to auscultation bilaterally with symmetrical chest rise. No laboring tachypnea or wheezing. No intercostal subcostal retraction. No rales and no rhonchi. ABDOMEN: Soft, flat, nontender to palpation, no guarding or rebound tenderness. There are no abnormal masses palpated. No pulsatile masses or bruits. Active and normal bowel sounds. EXTREMITIES:.Normal inspection and palpation. No edema. No cyanosis. Patient is able to move all 4 extremities well SKIN: Warm and dry, no rashes noted. MUSCULOSKELETAL: No lumbar or midline bony tenderness. There is no CVA tenderness. No paraspinal muscle spasm or tenderness. NEURO: Cranial nerves II through XII grossly intact. There are no focal neurologic deficits noted. GCS is 15 PSYCHIATRIC: Affectors restricted, speech goal-directed, positive paranoid delusions, No HI/SI. LYMPHATICS: No major lymphadenopathy noted. Course Quality Measures none Orders Category Date Time Status EKG (ED ONLY) *Do not use* NOW Care 01/13/25 20:07 Completed CXR [XR chest 1V] Stat Exams 01/13/25 20:08 Completed EKG (ED Only) Stat Exams 01/13/25 20:06 Draft Acetaminophen Stat Lab 01/13/25 20:25 Completed Alcohol, Blood Medical Stat Lab 01/13/25 20:25 Completed CBC Stat Lab 01/13/25 20:25 Completed CK [Creatine Kinase] Stat Lab 01/13/25 20:25 Completed CMP [Comprehensive Metabolic Panel] Stat Lab 01/13/25 20:25 Completed Drug Screen,Urine Stat Lab 01/13/25 20:31 Completed VBG [Venous Blood Gas] Stat Lab 01/13/25 20:25 Completed Vital Signs Vital signs: Vital Signs Temperature 98.1 F 01/13/25 19:15 Pulse Rate 92 01/13/25 19:15 Respiratory Rate 18 01/13/25 19:15 Blood Pressure 153/93 H 01/13/25 19:15 Pulse Oximetry (%) 98 01/13/25 19:15 Oxygen Delivery Method Room Air 01/13/25 19:15 Psych MDM Narrative MDM Narrative:: Scribe Attestation: IIsaura, am scribing for and in the presence of Dr. Paul. Provider Notation: Although this document has been carefully reviewed, there may still be some phonetic and other typographical errors. These errors are purely grammatical due to imperfections in the software program and should not be construed in any way to compromise the substance of the patient's medical care during this visit. 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 Patient has since developed mild epigastric discomfort, nausea, and mild SOB. Please see PE findings. Laboratory markers demonstrate WBC of 6.4, H and H of 11/35, and platelet count of 336. Serum chemistries were essentially unremarkable. UA with evidence of pyuria, leukeocyte esterase reaction, and no bacteria present.? EKG: demons sinus rhythm without acute changes. CXR is unremarkable. Patient is in stable condition and with evidence of chronic psych condition for which patient receives monthly injections. Will recommend patient restart Prilosec and reduce alcohol consumption. No critical process identifiable at this time. Close psychiatric f/u requested and precautionary instructions issued. Patient data External records reviewed:: [facility] previous records (Reviewed prior ED records from 01/10/25. Patient was seen for Weakness.) Clinical information provided by:: patient Social determinants that could affect healthcare access:: alcohol use Patient has the following chronic illnesses:: Hypercholesterolemia, Schizophrenia, Bipolar Disorder and Anxiety How is presenting disease/condition affected by chronic disease/condition?: exacerbated by Evaluation data The following diagnostics were reviewed and interpreted by me:: lab results, radiology exam(s) and EKG tracing(s) (EKG at 20:19 shows normal sinus rhythm at 97, normal axis, no ectopy, no signs of acute ischemia, per my interpretation.) Lab and/or radiology exams considered but not ordered:: None Interpretation Summary: RADIOLOGY Chest X-Ray: FINDINGS: Normal heart size The lungs are clear. The osseous ruptures are intact IMPRESSION: No active disease Medications / Prescriptions Medications or Prescriptions considered but not ordered:: None Medication administrations:: See above if any Consultations Consultation(s) initiated? (list below): No Diagnosis Psych Differential Diagnosis: acute psychosis, chronic schizophrenia, bipolar disorder, depression and acute anxiety Most likely diagnosis given after review of the tests above:: Schizoaffective disorder, chronic condition, UTI (urinary tract infection) Admission Indicated Admission indicated?: not indicated Explain why admission is indicated or not indicated:: Patient does not meet admission criteria Admission Request Was there a request for admission?: No Disposition Plan Disposition Plan: Discharge Discharge Attestation Discharge Attestation: The patient and all family members were given an opportunity to ask questions and understood the discharge instructions. Discharge instructions specifically effects, indications for sooner follow up or return to the emergency department, and the expected course of current diagnosis. Patient condition: Stable Discharge Plan Plan Patient Disposition: HOME (Self Care) Discharge Disposition comment: Stable Prescriptions/Referrals Prescriptions/Med Rec: New cephalexin 500 mg capsule 500 mg PO Q8H 5 Days Qty: 15 0RF No Action hydroxyzine pamoate [Vistaril] 50 mg Capsule 50 mg PO BID PRN (Reason: Anxiety) Invega Sustenna 234 mg/1.5 mL Syringe ciprofloxacin HCl [Cipro] 500 mg tablet 500 mg PO BID Qty: 14 0RF ibuprofen 600 mg tablet 600 mg PO QAM Qty: 14 0RF Referrals: Fredy Fitzpatrick MD [Primary Care Provider, Family Practice] - In 1 week Problem List Clinical Impression: Schizoaffective disorder, chronic condition, UTI (urinary tract infection) Impression comment: Schizoaffective disorder/UTI Patient/Caregiver Discharge Instructions Diet Instructions: Force fluids Education Materials: Urinary Tract Infections in Women, ED Schizoaffective Disorder Additional Instructions: Force fluids/continue antipsychotic medications. Antibiotics for 5 days for UTI. Follow-up with primary care doctor and limit alcohol consumption.. Print Language: Syriac Stand Alone Forms: Chiara Award Info., Patient Portal Info Letter
== END 2025-01-13 22:36 | disposition home or self-care (01) ==
PROVIDERS: Physician Assistant; Emergency Provider Emergency Medicine; PCP Family Medicine
DX: N39.0 Urinary tract infection, site not specified (principal); F25.9 Schizoaffective disorder, unspecified
CPT/HCPCS: 36415; 71045; 80053; 80307; 80320; 80329; 82550; 82803; 85025; 93005; 99283; G0480